=== PATIENT | male | born 2000 | race Caucasian/White ===

== ENCOUNTER 2020-08-18 12:32 | Emergency (ER) | payer BC ==
--- NOTE | 2020-08-18 13:24 | CR ---
Left second finger: 3 views centered to the left second finger were obtained. Diffuse air is seen within the soft tissues. Joint spaces are preserved. No acute fracture, dislocation or other bony abnormality is seen. Impression: 1. Diffuse soft tissue air. 2. No acute osseous abnormality is appreciated. Diagnostic code #3
--- NOTE | 2020-08-18 13:53 | EDM.PDOC ---
ED HPI GENERAL MEDICAL PROBLEM - General Chief Complaint: Laceration Stated Complaint: LT POINTER FINGER LAC Time Seen by Provider: 08/18/20 12:39 Source of Information: Reports: Patient History Limitations: Reports: No Limitations - History of Present Illness INITIAL COMMENTS - FREE TEXT/NARRATIVE: The patient presents with left finger laceration. He was cleaning a deck with a steward dishwasher. He was changing the tip and it went off and cut his left index finger. He is right handed. His tetanus is up to date. He has no health problems. The steward dishwasher had water and a Zep solution for cleaning. Onset: Sudden Duration: Minutes: Location: Reports: Upper Extremity, Left (index finger) Quality: Reports: Sharp Severity: Moderate Improves with: Reports: Immobilization Worsens with: Reports: Movement Associated Symptoms: Reports: No Other Symptoms Left Finger-Index Pain Score (Numeric/FACES): 10 - Related Data Allergies Allergy/AdvReac Type Severity Reaction Status Date / Time Penicillins Allergy Severe Rash Verified 08/18/20 12:42 Home Meds: Home Meds Ascorbic Acid [Vitamin C] 500 mg PO BID 08/18/20 [History] Azithromycin [Zithromax] 500 mg PO ASDIRECTED 08/18/20 [History] Ergocalciferol (Vitamin D2) [Vitamin D2] 50,000 unit PO WEEKLY 08/18/20 [Histo ry] Multivitamin 1 each PO DAILY 08/18/20 [History] cephALEXin [Keflex] 500 mg PO Q6H #40 cap 08/18/20 [Rx] Past Medical History - Past Surgical History HEENT Surgical History: Reports: Eye Surgery Social & Family History - Tobacco Use Tobacco Use Status *Q: Never Tobacco User - Caffeine Use Caffeine Use: Reports: Coffee - Recreational Drug Use Recreational Drug Use: No ED ROS GENERAL - Review of Systems Review Of Systems: See Below Constitutional: Reports: No Symptoms HEENT: Reports: No Symptoms Respiratory: Reports: No Symptoms Cardiovascular: Reports: No Symptoms Endocrine: Reports: No Symptoms GI/Abdominal: Reports: No Symptoms : Reports: No Symptoms Musculoskeletal: Reports: Other (Left index finger laceration and pain) ED EXAM, SKIN/RASH Exam: See Below Exam Limited By: No Limitations General Appearance: Alert, No Apparent Distress Ears: Normal External Exam Nose: Normal Inspection Head: Atraumatic, Normocephalic Neck: Normal Inspection Respiratory/Chest: No Respiratory Distress Extremities: Other (1cm laceration to the dorsum of the left index finger. Numb ness distally. He can still move his finger.) ED SKIN PROCEDURES - Splinting Left 2nd Digit Splint Site: Left index finger Pre-Procedure NV Status: Abnormal Post-Procedure NV Status: Abnormal Splint Material: Aluminum-Foam Splint Design: Other (Dorsal) Applied & Form Fitted By: Provider Provider Post-Splint Application NV Check: NV Status Normal, Good Position Complications: No Course - Vital Signs Last Recorded V/S: Last Vital Signs Temp 97.6 F 08/18/20 12:39 Pulse 99 08/18/20 12:39 Resp 16 08/18/20 12:39 BP 128/74 08/18/20 12:39 Pulse Ox 99 08/18/20 12:39 - Orders/Labs/Meds Meds: Medications Discontinued Medications Generic Name Dose Route Start Last Admin Trade Name Freq PRN Reason Stop Dose Admin Ceftriaxone Sodium 1 gm/ 0 gm 08/18/20 14:17 Lidocaine HCl 2.1 ml IM 08/18/20 14:18 ONETIME ONE - Re-Assessments/Exams Free Text/Narrative Re-Assessment/Exam: 08/18/20 14:18 I ordered an x-ray of his finger. The x-ray shows diffuse soft tissue air. I called Dr Hall and he recommended calling [facility] in [place]. I called and talked with Dr Taylor. He wanted the patient to have a dose of antibiotics here and a prescription for more and follow up with someone in the clinic tomorrow. 08/18/20 14:38 My tax record clerk called to make an appointment and [facility] will call the patient today to schedule an appointment. Departure - Departure Time of Disposition: 14:30 Disposition: Home, Self-Care 01 Condition: Good Clinical Impression: Finger laceration Qualifiers: Encounter type: initial encounter Finger: index finger Damage to nail status: with damage Foreign body presence: without foreign body Laterality: left Qualified Code(s): S61.311A - Laceration without foreign body of left index finger with damage to nail, initial encounter - Discharge Information *PRESCRIPTION DRUG MONITORING PROGRAM REVIEWED*: Not Applicable *COPY OF PRESCRIPTION DRUG MONITORING REPORT IN PATIENT ROCAEL: Not Applicable Prescriptions: cephALEXin [Keflex] 500 mg PO Q6H #40 cap Referrals: Olivia Schafer PA-C [Primary Care Provider] - Forms: ED Department Discharge Additional Instructions: Take the keflex 4 times per day for 10 days. Follow up with [facility] tomorrow. Someone from their office will call you. Leave the splint and dressing on until you see them. Please return if you are worse. Sepsis Event Note (ED) - Evaluation Sepsis Screening Result: No Definite Risk - Focused Exam Vital Signs: Vital Signs Temp Pulse Resp BP Pulse Ox 08/18/20 12:39 97.6 F 99 16 128/74 99
[2020-08-18] MEDS ORDERED: cefTRIAXone 1 GM, Lidocaine 1% 2.1 ML IM ONE ×2 (14:17)
== END 2020-08-18 14:59 | disposition home or self-care (01) ==
LOC: JD.ED 12:32
DX: S61.311A Laceration without foreign body of left index finger with damage to nail, initial encounter (principal); Z88.0 Allergy status to penicillin; W26.8XXA Contact with other sharp object(s), not elsewhere classified, initial encounter
CPT/HCPCS: 73140-26-F1; 73140-F1; 96372; 99283

== ENCOUNTER 2022-02-12 08:17 | Emergency (ER) | payer BC ==
[2022-02-12] MEDS ORDERED: Metoclopramide 10 MG/2 ML SDV IVPUSH ONE (08:58)
[2022-02-12] MEDS ORDERED: Dextrose 5%-Lactated Ringers 1,000 ML IV SCH (09:00)
[2022-02-12] MEDS ORDERED: Ketorolac 30 MG/ML SDV IVPUSH SCH (09:00)
[2022-02-12 10:06] LABS: ESTIMATED GFR 80 mL/min (>60)
== END 2022-02-12 12:51 | disposition home or self-care (01) ==
LOC: JD.ED 08:17
DX: A05.9 Bacterial foodborne intoxication, unspecified (principal); R11.2 Nausea with vomiting, unspecified; R19.7 Diarrhea, unspecified; Z88.0 Allergy status to penicillin
CPT/HCPCS: 36415; 80053; 82009; 82150; 85025; 86140; 96361; 96374; 96375; 99284-25; J1885; J2765; J7121

== ENCOUNTER 2023-04-02 21:49 | Emergency (ER) | payer BC ==
[2023-04-02] MEDS ORDERED: Tetracaine HCl/PF 0.5% 4 ML Bottle EYEBOTH ONE (21:58)
[2023-04-02] MEDS ORDERED: Fluorescein 1 MG Ophth Strip EYEBOTH ONE (21:58)
== END 2023-04-02 22:30 | disposition home or self-care (01) ==
LOC: JD.ED 21:49
DX: S05.01XA Injury of conjunctiva and corneal abrasion without foreign body, right eye, initial encounter (principal); Z79.899 Other long term (current) drug therapy
CPT/HCPCS: 99283; J3490